=== PATIENT | male | born 1940 | race Caucasian/White ===

== ENCOUNTER 2023-03-29 21:38 | Emergency (ER) | payer OTHER ==
[~2023-03-29] VITALS: Ht 172.7 cm; Wt 77.1 kg
[2023-03-29 21:50] VITALS: BP_SYST 144
[2023-03-29] MEDS ORDERED: methylPREDNISolone SOD SUCC/PF 62.5 MG/ML VIAL IVP ONE (22:00)
[2023-03-29] MEDS ORDERED: DIPHENHYDRAMINE INJ 50 MG/ML VIAL IVP ONE (22:00)
[2023-03-29 23:23] VITALS: BP_SYST 144
[2023-03-29] MEDS ORDERED: HYDC2.5% TP (23:24)
[2023-03-29] MEDS ORDERED: EPIN0.1519 IM (23:24)
== END 2023-03-29 21:49 | disposition home or self-care (01) ==
LOC: SED 21:38
DX: T78.40XA Allergy, unspecified, initial encounter (principal); L50.9 Urticaria, unspecified; Z88.1 Allergy status to other antibiotic agents; X58.XXXA Exposure to other specified factors, initial encounter
CPT/HCPCS: 99284; 96374; 96375; J1200; J2930